=== PATIENT | male | born 1995 | race Caucasian/White ===

== ENCOUNTER 2017-12-09 17:16 | Emergency (ER) | payer OTHER ==
[2017-12-09 17:40] VITALS: BP 123/66
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
== END 2017-12-09 19:06 | disposition home or self-care (01) ==
LOC: UCEAST 17:16
DX: H66.91 Otitis media, unspecified, right ear (principal)
CPT/HCPCS: 87502; 99212; G0463

== ENCOUNTER 2019-06-16 18:24 | Emergency (ER) | payer OTHER ==
[2019-06-16] MEDS ORDERED: Ibuprofen TAB* 600 MG PO ONE (19:07)
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
[2019-06-16] MEDS ORDERED: oxyCODONE/Acetamin 5/325 MG* TAB PO ONE (19:40)
[2019-06-16 21:28] VITALS: BP 140/77
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
== END 2019-06-16 21:27 | disposition home or self-care (01) ==
LOC: ED 18:24
DX: S60.222A Contusion of left hand, initial encounter (principal); S60.221A Contusion of right hand, initial encounter; S30.0XXA Contusion of lower back and pelvis, initial encounter; S40.012A Contusion of left shoulder, initial encounter; S20.212A Contusion of left front wall of thorax, initial encounter; V28.4XXA Motorcycle driver injured in noncollision transport accident in traffic accident, initial encounter; Y92.410 Unspecified street and highway as the place of occurrence of the external cause; Z88.0 Allergy status to penicillin
CPT/HCPCS: 99283; A9270-GY